=== PATIENT | male | born 1940 | race American Indian/Alaskan Native ===

== ENCOUNTER → 2018-10-21 | Outpatient (CLI) | payer OTHER ==
[~2018-10-21] MED LIST: ALBU90OI6 INH; ATOR80 PO; CHLO500 PO; CLOP75 PO; HYDACE5 PO; NITR.4SL SL; Norco 5-325 Ta1 EACH PO; PREVACID; Prilosec Otc20 MG PO; TRICOR; ZOCOR; ZYRTEC
== END | disposition home or self-care (01) ==
LOC: LAB SHORT 11:09 → PLD 11:09
DX: D48.5 Neoplasm of uncertain behavior of skin (principal)
CPT/HCPCS: 88305